=== PATIENT | male | born 1965 | race African-American/Black ===

== ENCOUNTER 2020-05-28 09:58 | Inpatient (IN) ==
[2020-05-28 12:05] LABS: Basophils % 0.5 % (0.0-0.8); Eosinophils # 0.1 10*3/uL (0.0-0.87); Eosinophils % 1.4 % (0.00-10.9); Hematocrit 43.8 VOL% (42.0-52.0); Hemoglobin 14.1 GM/DL (14.0-18.0); Immature Granulocytes % 0.5 %; Immature Granulocytes Absolute 0.03 #; Lymphocytes # 1.6 10*3/uL (1.4-4.0); Lymphocytes % 24.1 % (21.2-54.2); Mean Corpuscular HGB Conc 32.2 GM/DL (32-36); Mean Corpuscular Volume 90.7 FL (87-102); Mean Platelet Volume 8.6 FL (9.6-12.0); Monocytes % 7.3 % (1.7-12.7); Neutrophils % 66.2 % (38.7-73.9); Platelet Count 275 T/CUMM (130-400); Red Blood Count 4.83 MC/CUMM (3.8-5.5); Red Cell Distribution Width 14.4 % (9.3-17.3); White Blood Count 6.6 T/CUMM (4-12)
[2020-05-28 12:30] LABS: Alanine Aminotransferase 17 U/L (16-61); Albumin 4.3 G/DL (3.4-5.0); Alkaline Phosphatase 94 U/L (45-117); Aspartate Amino Transferase 14 U/L (0-37); Bilirubin,Total < 0.39 MG/DL (0.2-1.0); Blood Urea Nitrogen 12 MG/DL (7-18); Calcium 9.4 MG/DL (8.5-10.1); Carbon Dioxide 29 MMOL/L (21-32); Estimated Glom Filtration Rate 122 ML/MIN; Glucose 99 MG/DL (74-106); Osmolality,Calculated 280.3 MOS/KG (273-304); Potassium 3.7 MMOL/L (3.5-5.1); Sodium 141 MMOL/L (136-145); Total Protein 7.8 G/DL (6.4-8.3)
[2020-05-28 14:24] LABS: Bacteria,Urine Few /HPF (Few); Bilirubin,Urine Negative (Negative); Blood, Urine Negative (Negative); Glucose,Urine (UA) Negative (Negative); Ketones,Urine 20 mg/dL (Negative); Mucus,Urine Many /LPF (Occasional); Nitrite,Urine Negative (Negative); Protein,Urine Negative; RBC,Urine 2 /HPF (0-4); Urine Appearance Slightly Hazy (Clear); Urine Color Yellow (Yellow); Urine Specific Gravity 1.047 (1.001-1.035); Urine Urobilinogen < 2.0 EU/DL (0.2-1.0); WBC,Urine 2 /HPF (0-6)
[2020-05-28] MEDS ORDERED: ONDANSETRON 4 MG/2 ML VIAL IV PRN (14:34)
[2020-05-28] MEDS ORDERED: SILVER SULFADIAZINE 1% CREAM 25 GM TUBE TOP ONE (17:24)
[2020-05-28] MEDS: SODIUM CHLORIDE 0.45% 1,000 ML IV SCH (20:01)
[2020-05-29] MEDS: SODIUM CHLORIDE 0.45% 1,000 ML IV SCH ×3 (03:58→16:48)
[2020-05-29 06:09] LABS: Basophils % 0.5 % (0.0-0.8); Eosinophils # 0.2 10*3/uL (0.0-0.87); Eosinophils % 3.1 % (0.00-10.9); Hematocrit 42.6 VOL% (42.0-52.0); Hemoglobin 13.9 GM/DL (14.0-18.0); Immature Granulocytes % 0.2 %; Immature Granulocytes Absolute 0.01 #; Lymphocytes # 2.2 10*3/uL (1.4-4.0); Lymphocytes % 38.7 % (21.2-54.2); Mean Corpuscular HGB Conc 32.6 GM/DL (32-36); Mean Corpuscular Volume 89.5 FL (87-102); Mean Platelet Volume 8.9 FL (9.6-12.0); Monocytes % 10.4 % (1.7-12.7); Neutrophils % 47.1 % (38.7-73.9); Platelet Count 243 T/CUMM (130-400); Red Blood Count 4.76 MC/CUMM (3.8-5.5); Red Cell Distribution Width 14.4 % (9.3-17.3); White Blood Count 5.6 T/CUMM (4-12)
[2020-05-29 06:28] LABS: Albumin 3.5 G/DL (3.4-5.0); Bilirubin,Total 0.4 MG/DL (0.2-1.0); Calcium 8.5 MG/DL (8.5-10.1); Osmolality,Calculated 273.7 MOS/KG (273-304); Potassium 3.7 MMOL/L (3.5-5.1); Risk Ratio 2.25; VLDL CHOLESTEROL 20.8 MG/DL
[2020-05-29 06:31] LABS: Ovalocytes Slight; Platelet Estimate Adequate
[2020-05-29] MEDS: CLOPIDOGREL 75 MG TABLET PO SCH (09:29)
[2020-05-29] MEDS: SIMVASTATIN 10 MG TABLET PO SCH (09:29)
[2020-05-29] MEDS: ASPIRIN CHEW 81 MG TABLET PO SCH (09:30)
[2020-05-29] MEDS: METOPROLOL TARTRATE 25 MG TABLET PO SCH ×2 (09:30→20:22)
[2020-05-30] MEDS: SODIUM CHLORIDE 0.45% 1,000 ML IV SCH ×4 (02:33→23:30)
[2020-05-30] MEDS: ASPIRIN CHEW 81 MG TABLET PO SCH (09:56)
[2020-05-30] MEDS: METOPROLOL TARTRATE 25 MG TABLET PO SCH ×2 (09:56→20:50)
[2020-05-30] MEDS: SIMVASTATIN 10 MG TABLET PO SCH (09:56)
[2020-05-30] MEDS: CLOPIDOGREL 75 MG TABLET PO SCH (09:56)
[2020-05-31] MEDS: SODIUM CHLORIDE 0.45% 1,000 ML IV SCH ×3 (04:50→18:10)
[2020-05-31] MEDS ORDERED: LORazepam 2 MG/1 ML VIAL ONE (06:43)
[2020-05-31] MEDS ORDERED: LORazepam 2 MG/1 ML VIAL IV ONE ×2 (06:45→06:58)
[2020-05-31 07:13] LABS: Basophils % 0.8 % (0.0-0.8); Eosinophils # 0.1 10*3/uL (0.0-0.87); Eosinophils % 3.9 % (0.00-10.9); Hematocrit 42.6 VOL% (42.0-52.0); Immature Granulocytes % 0.6 %; Immature Granulocytes Absolute 0.02 #; Lymphocytes # 1.8 10*3/uL (1.4-4.0); Lymphocytes % 49.9 % (21.2-54.2); Mean Corpuscular HGB Conc 32.9 GM/DL (32-36); Mean Platelet Volume 8.7 FL (9.6-12.0); Monocytes % 9.5 % (1.7-12.7); Neutrophils % 35.3 % (38.7-73.9); Platelet Count 222 T/CUMM (130-400); Red Blood Count 4.84 MC/CUMM (3.8-5.5); White Blood Count 3.6 T/CUMM (4-12)
[2020-05-31 07:22] LABS: Alanine Aminotransferase 17 U/L (16-61); Albumin 3.3 G/DL (3.4-5.0); Alkaline Phosphatase 95 U/L (45-117); Aspartate Amino Transferase 11 U/L (0-37); Bilirubin,Total < 0.39 MG/DL (0.2-1.0); Blood Urea Nitrogen 7 MG/DL (7-18); Calcium 8.5 MG/DL (8.5-10.1); Carbon Dioxide 26 MMOL/L (21-32); Estimated Glom Filtration Rate 120 ML/MIN; Glucose 91 MG/DL (74-106); Osmolality,Calculated 274.5 MOS/KG (273-304); Potassium 4.1 MMOL/L (3.5-5.1); Sodium 139 MMOL/L (136-145); Total Protein 7.1 G/DL (6.4-8.3)
[2020-05-31 07:33] LABS: Atypical Lymphocytes Few; Eosinophils 8 % (0-10); Lymphocytes 52 % (20-55); Platelet Estimate Adequate; Segmented Neutrophils 30 % (50-85); Total Cells Counted 100
[2020-05-31] MEDS: ASPIRIN CHEW 81 MG TABLET PO SCH (13:55)
[2020-05-31] MEDS: METOPROLOL TARTRATE 25 MG TABLET PO SCH ×2 (13:55→20:58)
[2020-05-31] MEDS: SIMVASTATIN 10 MG TABLET PO SCH (13:55)
[2020-05-31] MEDS: CLOPIDOGREL 75 MG TABLET PO SCH (13:55)
[2020-05-31] MEDS ORDERED: LORazepam 2 MG/1 ML VIAL IV PRN (19:42)
[2020-06-01] MEDS: SODIUM CHLORIDE 0.45% 1,000 ML IV SCH ×2 (07:12→08:58)
[2020-06-01] MEDS: METOPROLOL TARTRATE 25 MG TABLET PO SCH ×2 (08:35→21:14)
[2020-06-01] MEDS: CLOPIDOGREL 75 MG TABLET PO SCH (08:59)
[2020-06-01] MEDS: ASPIRIN CHEW 81 MG TABLET PO SCH (08:59)
[2020-06-01] MEDS: SIMVASTATIN 10 MG TABLET PO SCH (08:59)
[2020-06-01] MEDS: levETIRAcetam 250 MG TABLET PO SCH (21:13)
[2020-06-02] MEDS: SODIUM CHLORIDE 0.45% 1,000 ML IV SCH ×2 (02:18→05:39)
[2020-06-02 08:43] LABS: Basophils % 1.1 % (0.0-0.8); Eosinophils # 0.1 10*3/uL (0.0-0.87); Eosinophils % 3.8 % (0.00-10.9); Hematocrit 41.6 VOL% (42.0-52.0); Hemoglobin 14.1 GM/DL (14.0-18.0); Immature Granulocytes % 0.3 %; Immature Granulocytes Absolute 0.01 #; Lymphocytes % 55.7 % (21.2-54.2); Mean Corpuscular HGB Conc 33.9 GM/DL (32-36); Mean Corpuscular Volume 86.3 FL (87-102); Mean Platelet Volume 8.4 FL (9.6-12.0); Monocytes % 8.7 % (1.7-12.7); Neutrophils % 30.4 % (38.7-73.9); Platelet Count 223 T/CUMM (130-400); Red Blood Count 4.82 MC/CUMM (3.8-5.5); Red Cell Distribution Width 14.2 % (9.3-17.3); White Blood Count 3.7 T/CUMM (4-12)
[2020-06-02 08:59] LABS: Calcium 9.1 MG/DL (8.5-10.1); Osmolality,Calculated 269.1 MOS/KG (273-304); Potassium 4.2 MMOL/L (3.5-5.1)
[2020-06-02 09:02] LABS: Eosinophils 6 % (0-10); Lymphocytes 55 % (20-55); Platelet Estimate Adequate; Segmented Neutrophils 27 % (50-85); Total Cells Counted 100
[2020-06-02 09:03] LABS: Atypical Lymphocytes Few; Microcytosis Slight
[2020-06-02] MEDS: levETIRAcetam 250 MG TABLET PO SCH (10:04)
[2020-06-02] MEDS: SIMVASTATIN 10 MG TABLET PO SCH (10:04)
[2020-06-02] MEDS: CLOPIDOGREL 75 MG TABLET PO SCH (10:04)
[2020-06-02] MEDS: METOPROLOL TARTRATE 25 MG TABLET PO SCH (10:04)
[2020-06-02] MEDS: ASPIRIN CHEW 81 MG TABLET PO SCH (10:06)
[2020-06-02 12:15] VITALS: BP 123/76
== END 2020-06-02 13:15 | disposition home or self-care (01) | DRG 918 ==
LOC: N.ED 09:58 → SUATTDRO 14:35 → N.EDINP 14:35 → N.TELES 18:18
PROVIDERS: ADMIT Internal Medicine; ATTEND Family Medicine